=== PATIENT | female | born 1945 ===

== ENCOUNTER 2024-11-14 01:01 | Outpatient (CLI) | payer MEDICARE, BC, SELFPAY ==
--- NOTE | 2024-11-14 10:35 | DI.RAD_ITS ---
Exam(s) RF BARIUM SWALLOW EXAM: RF BARIUM SWALLOW CLINICAL HISTORY: DYSPHAGIA, UNSPEC TYPE R13.10 TECHNIQUE: 2D and realtime digital imaging was performed. CONTRAST MATERIAL: Oral barium Oral water soluble contrast was administered. COMPARISON: No exams were available for comparison FINDINGS: ESOPHAGRAM: Performed standing and recumbent NICOLAS: Vehicle Care Specialist film reveals multiple calcified right hilar lymph nodes and a small peripheral granuloma in the right lung. No other right lung findings. However, there appears to be the atelectasis or infiltrate in the left lower lobe posterior basal segment. Swallowing mechanism appears grossly intact no obvious penetration or aspiration evident. An anterior defect in the barium column at C4 level is noted which is probably retroflexion of the epiglottis with barium passing by. There is no obvious hypertense upper esophageal sphincter. There is no evidence of obvious Zenker's diverticulum. There is no dilatation of the esophageal lumen nor obvious focal strictures nor ulcers. No obvious tertiary waves. No indentations indicative of external compression of the lumen (such as would be seen with average right subclavian artery). GE junction appears unremarkable. No hiatal hernia. No evidence of Schatzki ring. No evidence of achalasia. IMPRESSION: No obvious abnormalities evident in the mid and lower esophagus. Higher up there is a shelf defect during swallowing which is probably related to retroflexion of the epiglottis. Scalp film review reveals atelectasis and infiltrate in the left lower lobe posterior basal segment. There are no prior chest x-rays for comparison. Recommend follow-up CT scan of the chest RADIATION DOSE DELIVERED: therese Freitas=36.7 mGy
[2024-11-14] MEDS: Simethicone/Sod Bicarb/Cit Ac, 4 gram PACKET 1 PACKET PO (10:37)
[2024-11-14] MEDS: Barium Sulfate 98% W/W 140 ML BTL PO (10:38)
[2024-11-14] MEDS: Barium Sulfate 60% W/V 355 ML BTL PO (10:39)
== END 2024-11-14 01:21 ==
PROVIDERS: Visit Provider Physician Assistant Medical
DX: R13.10 Dysphagia, unspecified (principal); J98.11 Atelectasis
CPT/HCPCS: 74221; J3490